=== PATIENT | female | born 1955 | race Caucasian/White ===

== ENCOUNTER 2017-04-09 09:27 | Emergency (ER) | payer OTHER ==
[~2017-04-09 09:27] MED LIST: ADVAIR 5001 DISK W/D PO; ALBUTEROL17 GM INH; ALBUTEROL17 GM NEB; ALLEGRA PO; ALPRAZOLAM PO; ATIVAN PO; CIPRO PO; CYMBALTA PO; DESYREL100 MG PO; FLEXERIL10 M1 PO; GUAIFENESIN PO; IBUPROFEN800 MG PO; LORTAB 5/500 TA1 TA1 PO; LORTAB 5/500 TA1 TA2 PO; LOTENSIN HCT 201 TAB PO; MACROBID100 M1 PO; MELLARIL PO; MOBIC PO; NEURONTIN PO; NEXIUM PO; PAMELOR50 M1 PO; PREDNISONE PO; PYRIDIUM PO; RISPERIDONE PO; SENNA S TABLET1 TAB PO; TYLOX 5-500 CA1 EACH PO; VICODIN 5/500 T1 TAB PO; ZYFLO600 MG PO
[2017-04-09 10:08] LABS: URINE SOURCE CLEAN CATCH
[2017-04-09 10:16] LABS: URINE APPEARANCE CLOUDY; URINE BILIRUBIN NEG (NEG); URINE BLOOD NEG (NEG); URINE COLOR YELLOW; URINE GLUCOSE NEG (NEG); URINE KETONE NEG (NEG); URINE LEUKOCYTE ESTERASE 2+ (NEG); URINE NITRATE POS (NEG); URINE PROTEIN NEG (NEG); URINE SPECIFIC GRAVITY 1.019 (1.003-1.035)
[2017-04-09 10:18] LABS: CULTURE INDICATED? YES; URBCS1 AUWI 0-2 /[HPF] (0-2); URINE BACTERIA AUWI 4+ (NEGATIVE); URINE SQUAMOUS EPITHELIAL CELL OCC /[HPF]
== END 2017-04-09 11:08 | disposition home or self-care (01) ==
LOC: CFTX 09:27 → CED 09:27 → CFTX 10:17
PROVIDERS: Nurse Practitioner
DX: N39.0 Urinary tract infection, site not specified (principal); J45.909 Unspecified asthma, uncomplicated; Z90.710 Acquired absence of both cervix and uterus; F31.9 Bipolar disorder, unspecified; Z88.8 Allergy status to other drugs, medicaments and biological substances
CPT/HCPCS: 81003; 87086; 87088; 87186; 99283

== ENCOUNTER 2017-05-10 12:03 | Emergency (ER) | payer OTHER ==
[~2017-05-10] VITALS: Ht 157.5 cm; Wt 95.2 kg
--- NOTE | ~2017-05-10 | CR63 ---
[facility] A Service [facility] RADIOLOGY TEXT RESULTS PATIENT: XAVIER HART LOCATION: [facility] : 53 UNIT #: [id number] AGE: [address]: Maida Elias SEX: F ORDER DR: [id number] [facility] [address] [place], [place] [address] [id number] MR#: [id number] Acc #: [id number] NAME: XAVIER HART : 1955 SEX: F STUDY DATE/TIME: 05/10/2017 14:30 UNIT: [facility] ROOM: STUDY DESCRIPTION: CR Chest 2 View Attending Physician: Maida Elias Pa-C Ordering Physician: Maida Elias Pa-C Primary Care Physician: Kyleigh Wilkerson MEDICAL IMAGING REPORT This report is preliminary unless electronic signature is present EXAM Two-view chest HISTORY Left shoulder pain. Cough. Hurts to breathe x4 days. Clinical concern for pleurisy. COMPARISON 01/22/2010. FINDINGS 2 views of the chest demonstrate moderate lung volumes, satisfactory technique. No infiltrates or effusions. Heart, mediastinum unremarkable. The osseous structures demonstrate degenerative changes mid-thoracic spine with no definitive fracture. IMPRESSION Moderate diffuse degenerative changes thoracic spine. No acute cardiopulmonary abnormality. Dictated by... Ventura Hoskins M.D. THIS IS AN ELECTRONICALLY VERIFIED REPORT Ventura Hoskins M.D. at 05/11/2017 1:32 PM LEILAS/reagan TD: 05/11/2017 01:55 JOB #: [id number] MEDICAL IMAGING REPORT [facility] A Service [facility] RADIOLOGY TEXT RESULTS PATIENT: XAVIER HART LOCATION: [facility] : 53 UNIT #: [id number] AGE: [address]: Maida Elias SEX: F ORDER DR: Page 1 of 1 COPY
[2017-05-10 13:22] LABS: URINE SOURCE CLEAN CATCH
[2017-05-10 13:37] LABS: URINE APPEARANCE CLOUDY; URINE BILIRUBIN NEG (NEG); URINE BLOOD NEG (NEG); URINE COLOR YELLOW; URINE GLUCOSE NEG (NEG); URINE KETONE TRACE (NEG); URINE LEUKOCYTE ESTERASE 1+ (NEG); URINE NITRATE NEG (NEG); URINE PH 6.5 (5-8); URINE PROTEIN 2+ (NEG); URINE SPECIFIC GRAVITY 1.016 (1.003-1.035)
[2017-05-10 13:39] LABS: CULTURE INDICATED? YES; URINE BACTERIA AUWI 1+ (NEGATIVE); URINE SQUAMOUS EPITHELIAL CELL MOD /[HPF]
[2017-05-10 13:59] LABS: URINE MUCUS PRESENT
== END 2017-05-10 15:40 | disposition home or self-care (01) ==
LOC: CFTX 12:03 → CED 12:03 → CFTX 15:31
DX: M54.6 Pain in thoracic spine (principal); F31.9 Bipolar disorder, unspecified; Z88.8 Allergy status to other drugs, medicaments and biological substances; Z90.710 Acquired absence of both cervix and uterus
CPT/HCPCS: 71020; 81003; 87086; 99283

== ENCOUNTER 2017-05-26 04:00 | Emergency (ER) | payer OTHER ==
[~2017-05-26] VITALS: Ht 157.5 cm; Wt 95.2 kg
[2017-05-26 05:36] LABS: URINE SOURCE CLEAN CATCH
[2017-05-26 05:39] LABS: BASOPHIL# 0.1 X10e3 (0-0.3); BASOPHIL% 0.8 % (0-2.5); EOSINOPHIL# 0.4 X10e3 (0-0.7); HEMATOCRIT 35.5 % (35.0-45.0); HEMOGLOBIN 11.3 gm/dL (12.0-16.0); LYMPHOCYTE# 2.1 X10e3 (1.0-3.5); LYMPHOCYTE% 16.8 % (17.0-45.0); MEAN CELL VOLUME 87.1 FL (83-96); MEAN CORPUSCULAR HEMOGLOBIN 27.8 PG (28-34); MEAN PLATELET VOLUME 8.5 FL (6.5-11.5); NEUTROPHIL# 8.9 X10e3 (1.5-7.1); NEUTROPHIL% 71.4 % (40-75); PLATELET COUNT 339 X10e3 (140-420); RED BLOOD COUNT 4.08 X10e (3.90-5.30); RED CELL DISTRIBUTION WIDTH 13.9 % (11.0-15.5); WHITE BLOOD COUNT 12.4 X10e3 (4.0-10.5)
[2017-05-26 05:45] LABS: DIFF IND NO
[2017-05-26 05:59] LABS: URINE APPEARANCE CLOUDY; URINE BLOOD NEG (NEG); URINE COLOR DK YELLOW; URINE GLUCOSE NEG (NEG); URINE KETONE TRACE (NEG); URINE LEUKOCYTE ESTERASE 2+ (NEG); URINE NITRATE NEG (NEG); URINE PH 5.5 (5-8); URINE PROTEIN 1+ (NEG); URINE SPECIFIC GRAVITY 1.023 (1.003-1.035)
[2017-05-26 06:01] LABS: CULTURE INDICATED? YES; URINE SQUAMOUS EPITHELIAL CELL FEW /[HPF]
[2017-05-26 06:09] LABS: ALBUMIN SERUM 3.6 g/dL (3.5-5.0); BILIRUBIN,TOTAL 0.2 mg/dL (0.2-2.0); BUN/CREATININE RATIO 21.25; CALCIUM SERUM 9.4 mg/dL (8.4-10.2); CREATININE SERUM 0.8 mg/dL (0.6-1.4); GLOM FILT RATE Estimated 79.1 mL/min (>60); POTASSIUM 3.7 mmol/L (3.5-5.1); PROTEIN TOTAL SERUM 7.1 g/dL (6.0-8.3)
[2017-05-26 06:14] LABS: AMPHETAMINE NEG (NEG); BARBITURATES NEG (NEG); BENZODIAZEPINES POS (NEG); COCAINE NEG (NEG); MARIJUANA NEG (NEG); OPIATES NEG (NEG); TRICYCLIC ANTIDEPRESSANTS POS (NEG); U METHADONE NEG (NEG)
[2017-05-26 06:16] LABS: URINE BILIRUBIN NEG (NEG)
[2017-05-26 06:18] LABS: URBCS1 AUWI 0-2 /[HPF] (0-2); URINE CRYSTALS CALCIUM OXALATE /[HPF]
== END 2017-05-26 06:40 | disposition home or self-care (01) ==
LOC: CED 04:00
PROVIDERS: Nurse Practitioner
DX: N39.0 Urinary tract infection, site not specified (principal); J45.909 Unspecified asthma, uncomplicated; F41.9 Anxiety disorder, unspecified; F32.9 Major depressive disorder, single episode, unspecified
CPT/HCPCS: 36415; 80053; 80307; 81003; 85025; 87086; 99283